=== PATIENT | female | born 1960 ===

== ENCOUNTER 2016-08-03 02:07 | Emergency (ER) | payer MEDICAID, OTHER ==
[2016-08-03 02:07] VITALS: BMI 26.7
[2016-08-03 02:32] VITALS: RESP 18
[2016-08-03] MEDS ORDERED: Sodium Chloride 0.9% 1,000 ML IV STA (02:46)
[2016-08-03 02:50] LABS: RBC URINE < 1 /hpf (0-3); URINE BILIRUBIN NEGATIVE (NEGATIVE); URINE BLOOD NEGATIVE (NEGATIVE); URINE COLOR Yellow (YELLOW); URINE GLUCOSE (UA) NORMAL (Normal); URINE KETONE NEGATIVE (NEGATIVE); URINE LEUKOCYTE ESTERASE NEG Leu/uL (Negative); URINE PROTEIN NEGATIVE (NEGATIVE); URINE UROBILINOGEN NORMAL mg/dL (0.2-1.0); WBC URINE 1 /hpf (0-5)
[2016-08-03] MEDS ORDERED: Sodium Chloride 0.9% 1,000 ML ONE (02:58)
[2016-08-03 03:02] LABS: BASO # 0.1 K/uL (0.0-0.2); BASO % 0.6 % (0.0-2.0); EOS # 0.1 K/uL (0.0-0.7); HEMATOCRIT 32.7 % (34.0-47.0); LYMPH # 2.1 K/uL (1.0-4.3); LYMPH % 24.5 % (20.0-40.0); MEAN CELL VOLUME 81.7 fL (81.0-99.0); MEAN CORPUSCULAR HEMOGLOBIN 26.6 pg (27.0-31.0); MEAN CORPUSCULAR HGB CONC 32.5 g/dL (33.0-37.0); MEAN PLATELET VOLUME 7.7 fL (7.2-11.7); MONO # 0.7 K/uL (0.0-0.8); MONO % 7.8 % (0.0-10.0); RED CELL DISTRIBUTION WIDTH 14.6 % (11.5-14.5); WHITE BLOOD COUNT 8.7 K/uL (4.8-10.8)
[2016-08-03 03:09] LABS: CHLORIDE 99 mmol/L (98-107); POTASSIUM 3.8 mmol/L (3.6-5.2); SODIUM 138 mmol/L (132-148)
[2016-08-03 03:11] LABS: AST/SGOT 28 U/L (14-36); BILIRUBIN,TOTAL 0.3 mg/dL (0.2-1.3); CARBON DIOXIDE 28 mmol/L (22-30); GFR AFRICAN-AMERICAN > 60
[2016-08-03 03:12] LABS: ALB/GLOB RATIO 1.4 (1.0-2.1); ALKALINE PHOSPHATASE 74 U/L (38-126); ALT/SGPT 31 U/L (9-52); BLOOD UREA NITROGEN 25 mg/dL (7-17); CALCIUM 8.5 mg/dl (8.6-10.4); GLUCOSE,RANDOM 102 mg/dL (65-105); TOTAL PROTEIN 6.5 g/dL (6.3-8.3)
[2016-08-03] MEDS ORDERED: Iodixanol 320 MG/ML 100 ML BOTTLE IV ONE (04:13)
--- NOTE | 2016-08-03 04:23 | C.PDOC ---
History Of Present Illness Patient is a 55 year old female who presents to the ER with a complaint of suprapubic pain that radiates to her back and nausea. Patient notes that her breast have gotten bigger and she cannot stand her 's scent. Patient believes she is because the last time she had these symptoms was when she was . Patient also had a hysterectomy 15 year ago. Denies any urinary symptoms, fever, chills, vomiting, or diarrhea. Time Seen by Provider: 08/03/16 02:34 Chief Complaint (Nursing): Abdominal Pain History Per: Patient History/Exam Limitations: no limitations Onset/Duration Of Symptoms: Hrs Current Symptoms Are (Timing): Still Present Location Of Pain/Discomfort: Suprapubic Radiation Of Pain To:: Back Associated Symptoms: Nausea. denies: Fever, Chills, Vomiting, Diarrhea, Urinary Symptoms Past Medical History Reviewed: Historical Data, Nursing Documentation, Vital Signs Vital Signs: Last Vital Signs Temp 98.6 F 08/03/16 06:00 Pulse 75 08/03/16 06:00 Resp 18 08/03/16 06:00 BP 115/74 08/03/16 06:00 Pulse Ox 99 08/03/16 06:43 - Medical History PMH: HTN, Hypercholesterolemia Other Surgeries: Hysterectomy - [facility] Procedures OTHER MISC PROCEDURE (03/14/00) Family History: States: Unknown Family Hx - Social History Hx Alcohol Use: No Hx Substance Use: No - Immunization History Hx Tetanus Toxoid Vaccination: No Hx Influenza Vaccination: No Hx Pneumococcal Vaccination: No Review Of Systems Constitutional: Positive for: Chills. Negative for: Fever Cardiovascular: Negative for: Palpitations Respiratory: Negative for: Cough, Shortness of Breath Gastrointestinal: Positive for: Nausea, Abdominal Pain (Suprapubic). Negative for: Vomiting, Diarrhea Physical Exam - Physical Exam Appears: Well, Non-toxic Skin: Normal Color, Warm, Dry Head: Atraumatic, Normacephalic Oral Mucosa: Moist Chest: Symmetrical Cardiovascular: Rhythm Regular Respiratory: Normal Breath Sounds, No Rales, No Rhonchi, No Wheezing Gastrointestinal/Abdominal: Soft, Tenderness (Suprapubic and epigastric ) Neurological/Psych: Oriented x3, Normal Speech, Normal Cognition ED Course And Treatment - Laboratory Results Result Diagrams: 08/03/16 02:59 08/03/16 02:59 O2 Sat by Pulse Oximetry: 99 (room air) Pulse Ox Interpretation: Normal - CT Scan/US Abdomen/pelvis CT with IV contrast Other Rad Studies (CT/US): Read By Radiologist, Radiology Report Reviewed CT/US Interpretation: EXAM: CT Abdomen and Pelvis With Intravenous Contrast. CLINICAL HISTORY: 55 years old, female; Pain; Abdominal pain; Localized; Lower ; Additional info: Pelvic pain, nausea,. h/o hysterectomy. TECHNIQUE: Axial computed tomography images of the abdomen and pelvis with intravenous contrast. This CT. exam was performed using one or more of the following dose reduction techniques: automated. exposure control, adjustment of the mA and/or kV according to patient size, and/or use of iterative. reconstruction technique. Coronal and sagittal reformatted images were created and reviewed. CONTRAST: 100 mL of visipaque administered intravenously. COMPARISON: No relevant prior studies available. FINDINGS: Lower thorax: Minimal atelectasis. ABDOMEN: Liver: Few subcentimeter enhancing lesions. Gallbladder and bile ducts: No calcified stones. No ductal dilation. Pancreas: No ductal dilation. No mass. Spleen: No splenomegaly. Adrenals: 1.3 x 1.1 x 1.3 cm lesion within LEFT adrenal gland, indeterminate by CT criteria. Kidneys and ureters: No mass. No hydronephrosis. Stomach and bowel: No definite mural thickening. No obstruction. Appendix: Normal caliber. No inflammation. PELVIS: Bladder: Unremarkable. Reproductive: 2.3 x 2.0 x 1.9 cm hypodense lesion within LEFT ovary. Hysterectomy. ABDOMEN and PELVIS: Intraperitoneal space: No significant fluid collection. No free air. Bones/joints: Mild degenerative changes of spine. No acute fracture. Soft tissues: Unremarkable. Vasculature: Unremarkable. No abdominal aortic aneurysm. Lymph nodes: No pathologically enlarged lymph nodes. IMPRESSION: 1. Liver lesions, indeterminate. Recommend nonemergent MRI. 2. Adrenal lesion, indeterminate. Recommend nonemergent MRI. 3. Probable LEFT ovarian cyst. Suggest ultrasound. 4. Incidental/non-acute findings are described above. Progress Note: Abdomen and pelvis CT with IV contrast and pelvis US ordered. Protonix IVP, IV fluids, and Zofran IVP administered. On re-evaluation patient feels better and is stable to be d/c hoome with PMD follow up. Copies of labs and CT were given to the patient. Disposition - Disposition Disposition: HOME/ ROUTINE Disposition Time: 06:39 Condition: GOOD Additional Instructions: Follow up with PMD within 1-2 days. return to ED if feel worse. Prescriptions: Ibuprofen [Motrin Tab] 600 mg PO Q8 #30 tab Ondansetron [Zofran Odt] 1 - 2 tab PO .Q4-6H PRN #20 odt PRN Reason: Nausea/Vomiting Instructions: Ovarian Cyst (ED) - Clinical Impression Clinical Impression: Ovarian cyst - Scribe Statement The provider has reviewed the documentation as recorded by the Scribwendie Marina All medical record entries made by the Sugeyibwendie were at my direction and personally dictated by me. I have reviewed the chart and agree that the record accurately reflects my personal performance of the history, physical exam, medical decision making, and the department course for this patient. I have also personally directed, reviewed, and agree with the discharge instructions and disposition.
[2016-08-03 06:27] VITALS: BP 115/74; PULSE 75; TEMP 98.6
--- NOTE | 2016-08-03 06:28 | CT ---
EXAM: CT Abdomen and Pelvis With Intravenous Contrast CLINICAL HISTORY: 55 years old, female; Pain; Abdominal pain; Localized; Lower; Additional info: Pelvic pain, nausea, h/o hysterectomy TECHNIQUE: Axial computed tomography images of the abdomen and pelvis with intravenous contrast. This CT exam was performed using one or more of the following dose reduction techniques: automated exposure control, adjustment of the mA and/or kV according to patient size, and/or use of iterative reconstruction technique. Coronal and sagittal reformatted images were created and reviewed. CONTRAST: 100 mL of visipaque administered intravenously. COMPARISON: No relevant prior studies available. FINDINGS: Lower thorax: Minimal atelectasis. ABDOMEN: Liver: Few subcentimeter enhancing lesions. Gallbladder and bile ducts: No calcified stones. No ductal dilation. Pancreas: No ductal dilation. No mass. Spleen: No splenomegaly. Adrenals: 1.3 x 1.1 x 1.3 cm lesion within LEFT adrenal gland, indeterminate by CT criteria. Kidneys and ureters: No mass. No hydronephrosis. Stomach and bowel: No definite mural thickening. No obstruction. Appendix: Normal caliber. No inflammation. PELVIS: Bladder: Unremarkable. Reproductive: 2.3 x 2.0 x 1.9 cm hypodense lesion within LEFT ovary. Hysterectomy. ABDOMEN and PELVIS: Intraperitoneal space: No significant fluid collection. No free air. Bones/joints: Mild degenerative changes of spine. No acute fracture. Soft tissues: Unremarkable. Vasculature: Unremarkable. No abdominal aortic aneurysm. Lymph nodes: No pathologically enlarged lymph nodes. IMPRESSION: 1. Liver lesions, indeterminate. Recommend nonemergent MRI. 2. Adrenal lesion, indeterminate. Recommend nonemergent MRI. 3. Probable LEFT ovarian cyst. Suggest ultrasound. 4. Incidental/non-acute findings are described above.
[2016-08-03 06:33] VITALS: O2SAT 99
== END 2016-08-03 06:46 | disposition home or self-care (01) ==
LOC: C.ER 02:07
DX: N83.202 Unspecified ovarian cyst, left side (principal)
CPT/HCPCS: 74177; 80053; 81001; 83690; 84703; 85025; 96361; 96374; 96375; 99284; C9113; J2405; J7040; Q9967

== ENCOUNTER 2016-08-05 05:43 | Emergency (ER) | payer OTHER ==
[2016-08-05 05:43] VITALS: BMI 26.7
[2016-08-05 06:10] VITALS: BP 136/88; PULSE 77; TEMP 98.6; O2SAT 98
[2016-08-05 06:53] VITALS: RESP 17
== END 2016-08-05 06:45 | disposition left against medical advice (07) ==
LOC: C.ER 05:43
DX: R10.9 Unspecified abdominal pain (principal); Z02.9 Encounter for administrative examinations, unspecified

== ENCOUNTER 2016-12-29 18:59 | Emergency (ER) | payer OTHER ==
[2016-12-29 19:00] VITALS: BMI 26.7
[2016-12-29] MEDS ORDERED: Pantoprazole 40 mg EC Tab PO STA (20:07)
[2016-12-29] MEDS ORDERED: Aspirin 325 mg EC Tablets PO STA (20:07)
[2016-12-29] MEDS ORDERED: Alum-Mag Hydrox-Simethicone Susp (30 mL) PO STA (20:07)
--- NOTE | 2016-12-29 20:15 | C.PDOC ---
History Of Present Illness A 56 year old female, whose past medical history includes, hypertension, hypercholesterolemia, GERD, and gastritis, presents to the emergency department complaining of burning epigastric pain, which has worsened over the last 3 days and worsens with burping. The patient reports she also has increased anxiety due to martial issues. She admits to occasionally taking protonix for her gastritis in the morning, she doesn't take maalox for her heart burn. The patient denies any chest pain, fever, nausea, vomiting, or any other complaints at this time. Time Seen by Provider: 12/29/16 20:00 Chief Complaint (Nursing): Chest Pain History Per: Patient History/Exam Limitations: no limitations Past Medical History - Medical History PMH: HTN, Hypercholesterolemia - [facility] Procedures OTHER MISC PROCEDURE (03/14/00) Family History: States: Unknown Family Hx - Social History Hx Alcohol Use: No Hx Substance Use: No - Immunization History Hx Tetanus Toxoid Vaccination: No Hx Influenza Vaccination: No Hx Pneumococcal Vaccination: No Review Of Systems Except As Marked, All Systems Reviewed And Found Negative. Constitutional: Negative for: Fever Cardiovascular: Negative for: Chest Pain Gastrointestinal: Positive for: Abdominal Pain (epigastric ). Negative for: Nausea, Vomiting Physical Exam - Physical Exam Appears: Well, Non-toxic, No Acute Distress Skin: Normal Color, Warm, Dry Head: Atraumatic, Normacephalic Eye(s): bilateral: Normal Inspection, PERRL, EOMI Nose: Normal Throat: Normal Neck: Normal Chest: Other (no reproducible chest pain ) Cardiovascular: Rhythm Regular Respiratory: Normal Breath Sounds Gastrointestinal/Abdominal: Normal Exam, Other (no digitally reproducible pain ) Back: Normal Inspection Extremity: Normal ROM ED Course And Treatment - Laboratory Results Result Diagrams: 12/29/16 20:23 12/29/16 20:48 Lab Interpretation: Normal (trop neg.) ECG: Interpreted By Ks ECG Rhythm: Sinus Rhythm ECG Interpretation: Normal Rate From EC O2 Sat by Pulse Oximetry: 99 Pulse Ox Interpretation: Normal - Radiology CXR: Interpreted by Ks CXR Interpretation: Yes: No Acute Disease Progress Note: protonix PO and Maalox PO with dramatic improvement of chest buring discomfort. Reevaluation Time: 21:26 Reassessment Condition: Improved Medical Decision Making Medical Decision Making: Plan: -- EKG -- Chest X-ray -- Ecotrin, IV Fluids, Protonix -- Urinalysis Progress Notes: EKG: Ordered, reviewed, and independently interpreted the EKG. Rate: 83 BPM Rhythm: NSR Interpretation: No ST-segment elevations or depressions, no T-wave inversions, normal intervals. Comparison: No previous EKG for comparison. 2130: GERD and not ACS Disposition Doctor Will See Patient In The: Office Counseled Patient/Family Regarding: Studies Performed, Diagnosis - Disposition Disposition: HOME/ ROUTINE Disposition Time: 21:26 Condition: GOOD Forms: [employer] - Clinical Impression Clinical Impression: Chest discomfort, GERD (gastroesophageal reflux disease) - Scribe Statement The provider has reviewed the documentation as recorded by the Scribe Esperanza Laird All medical record entries made by the Scribe were at my direction and personally dictated by me. I have reviewed the chart and agree that the record accurately reflects my personal performance of the history, physical exam, medical decision making, and the department course for this patient. I have also personally directed, reviewed, and agree with the discharge instructions and disposition.
[2016-12-29] MEDS ORDERED: Aspirin 325 mg EC Tablets PO ONE (20:20)
[2016-12-29] MEDS ORDERED: Pantoprazole 40 mg EC Tab PO ONE (20:21)
[2016-12-29] MEDS ORDERED: Aluminum Hydroxide/Magnesium Hydroxide Susp (30 mL) ONE (20:21)
[2016-12-29 20:28] LABS: BASO # 0.1 K/uL (0.0-0.2); BASO % 0.6 % (0.0-2.0); EOS # 0.1 K/uL (0.0-0.7); EOS % 1.4 % (0.0-4.0); HEMATOCRIT 35.1 % (34.0-47.0); LYMPH # 2.4 K/uL (1.0-4.3); MEAN CELL VOLUME 80.9 fL (81.0-99.0); MEAN CORPUSCULAR HEMOGLOBIN 26.4 pg (27.0-31.0); MEAN CORPUSCULAR HGB CONC 32.6 g/dL (33.0-37.0); MEAN PLATELET VOLUME 7.9 fL (7.2-11.7); MONO # 0.6 K/uL (0.0-0.8); MONO % 7.3 % (0.0-10.0); NRBC % 0.1 % (0.0-2.0); RED CELL DISTRIBUTION WIDTH 14.8 % (11.5-14.5); WHITE BLOOD COUNT 8.8 K/uL (4.8-10.8)
[2016-12-29 20:42] LABS: RBC URINE 1 /hpf (0-3); URINE BACTERIA RARE (<OCC); URINE BILIRUBIN NEGATIVE (NEGATIVE); URINE BLOOD NEGATIVE (NEGATIVE); URINE COLOR Amber (YELLOW); URINE GLUCOSE (UA) NORMAL (Normal); URINE KETONE NEGATIVE (NEGATIVE); URINE LEUKOCYTE ESTERASE NEG Leu/uL (Negative); URINE PROTEIN NEGATIVE (NEGATIVE); URINE UROBILINOGEN NORMAL mg/dL (0.2-1.0); WBC URINE 1 /hpf (0-5)
[2016-12-29 20:44] LABS: CHLORIDE 99 mmol/L (98-107)
[2016-12-29 20:45] LABS: POTASSIUM 3.2 mmol/L (3.6-5.2); SODIUM 137 mmol/L (132-148)
[2016-12-29 20:47] LABS: CARBON DIOXIDE 28 mmol/L (22-30); GFR AFRICAN-AMERICAN > 60
[2016-12-29 20:48] LABS: ALB/GLOB RATIO 1.3 (1.0-2.1); ALKALINE PHOSPHATASE 101 U/L (38-126); ALT/SGPT 47 U/L (9-52); AST/SGOT 27 U/L (14-36); BILIRUBIN,TOTAL 0.9 mg/dL (0.2-1.3); BLOOD UREA NITROGEN 11 mg/dL (7-17); CALCIUM 9.4 mg/dl (8.6-10.4); GLUCOSE,RANDOM 82 mg/dL (65-105); TOTAL PROTEIN 7.1 g/dL (6.3-8.3)
[2016-12-29 21:32] VITALS: BP 125/80; PULSE 81; RESP 20; O2SAT 98
--- NOTE | 2016-12-30 08:47 | RAD ---
HISTORY: SOB COMPARISON: No prior. TECHNIQUE: Chest PA and lateral FINDINGS: LUNGS: No active pulmonary disease. PLEURA: No significant pleural effusion identified. No pneumothorax apparent. CARDIOVASCULAR: Top-normal heart size OSSEOUS STRUCTURES: Thoracic spondylosis VISUALIZED UPPER ABDOMEN: Normal. OTHER FINDINGS: None. IMPRESSION: No active disease.
--- NOTE | 2016-12-31 11:43 | CARD ---
APPROVED REPORT EKG Measurement Heart [id number] <Conclusion> Normal sinus rhythm Minimal voltage criteria for LVH, may be normal variant Nonspecific ST abnormality Abnormal ECG
== END 2016-12-29 21:32 | disposition home or self-care (01) ==
LOC: C.ER 18:59
DX: K21.9 Gastro-esophageal reflux disease without esophagitis (principal); R07.89 Other chest pain

== ENCOUNTER 2018-09-09 11:28 | Outpatient (CLI) | payer OTHER | END 2018-09-09 11:29 | disposition home or self-care (01) | LOC: C.MAMMO 11:28 | DX: Z12.31 Encounter for screening mammogram for malignant neoplasm of breast (principal) ==